=== PATIENT | male | born 1995 | race African-American/Black ===

== ENCOUNTER 2018-03-03 09:37 | Emergency (ER) | payer MEDICAID ==
[~2018-03-03] VITALS: Ht 182.9 cm; Wt 109.0 kg
[2018-03-03] MEDS ORDERED: IBUPROFEN 600MG TABLET PO ONE (11:00)
[2018-03-03 11:07] VITALS: BP 119/85
== END 2018-03-03 11:17 | disposition home or self-care (01) ==
LOC: ER 10:25
DX: M54.5 Low back pain (principal); V47.5XXA Car driver injured in collision with fixed or stationary object in traffic accident, initial encounter; Y93.89 Activity, other specified; Y92.411 Interstate highway as the place of occurrence of the external cause
CPT/HCPCS: 99282